=== PATIENT | female | born 1925 | race Caucasian/White ===

== ENCOUNTER 2016-10-03 07:49 | Observation (INO) | payer OTHER ==
[2016-10-03] MEDS ORDERED: NS 1,000 ML IV ONE (07:54)
--- NOTE | 2016-10-03 07:57 | EDPHY ---
H & P Time Seen by Provider: 10/03/16 07:54 HPI/ROS: CHIEF COMPLAINT: Vomiting and diarrhea HISTORY OF PRESENT ILLNESS: Patient is an 89-year-old [facility] with a history of atrial fibrillation and dementia. Staff called EMS because she was vomiting and having diarrhea this morning. She seemed fine yesterday. The patient is unclear as to what her symptoms are. She denies having abdominal pain. No fevers. No recent changes in medications or foods. Vomitus and stool were nonbloody per EMS. REVIEW OF SYSTEMS: Constitutional: denies: chills, fever, recent illness, recent injury EENTM: denies: blurred vision, double vision, nose congestion Respiratory: denies: cough, shortness of breath Cardiac: denies: chest pain, irregular heart rate, lightheadedness, palpitations Gastrointestinal/Abdominal: See HPI Genitourinary: denies: dysuria, frequency, hematuria, pain Musculoskeletal: denies: joint pain, muscle pain Skin: denies: lesions, rash, jaundice, bruising Neurological: denies: headache, numbness, paresthesia, tingling, dizziness, weakness Hematologic/Lymphatic: denies: blood clots, easy bleeding, easy bruising Immunologic/allergic: denies: HIV/AIDS, transplant EXAM: GENERAL: Well-appearing, well-nourished and in no acute distress. HEAD: Atraumatic, normocephalic. EYES: Pupils equal round and reactive to light, extraocular movements intact, sclera anicteric, conjunctiva are normal. ENT: TMs normal, nares patent, oropharynx clear without exudates. Moist mucous membranes. NECK: Normal range of motion, supple without lymphadenopathy or JVD. LUNGS: Breath sounds clear to auscultation bilaterally and equal. No wheezes rales or rhonchi. HEART: Regular rate and rhythm without murmurs, rubs or gallops. ABDOMEN: Soft, nontender, normoactive bowel sounds. No guarding, no rebound. No masses appreciated. BACK: No CVA tenderness, no spinal tenderness, step-offs or deformities EXTREMITIES: Normal range of motion, no pitting or edema. No clubbing or cyanosis. NEUROLOGICAL: Cranial nerves II through XII grossly intact. Normal speech, normal gait. 5/5 strength, normal movement in all extremities, normal sensation PSYCH: Pleasantly demented SKIN: Warm, dry, normal turgor, no visible rashes or lesions. Source: Patient Exam Limitations: No limitations - Medical/Surgical History Hx Asthma: No Hx Chronic Respiratory Disease: No Hx Diabetes: No Hx Cardiac Disease: No Hx Renal Disease: No Hx Cirrhosis: No Hx Alcoholism: No - Family History Significant Family History: No pertinent family hx - Social History Smoking Status: Former smoker Alcohol Use: Sober Drug Use: None Constitutional: Initial Vital Signs Temperature (C) 36.9 C 10/03/16 07:49 Heart Rate 111 H 10/03/16 07:49 Respiratory Rate 16 10/03/16 07:49 Blood Pressure 138/73 H 10/03/16 07:49 O2 Sat (%) 98 10/03/16 07:49 O2 Delivery Mode Room Air Allergies/Adverse Reactions: tramadol Allergy (Verified 10/03/16 08:18) Home Medications: Medication Instructions Recorded Acetaminophen [Tylenol ES 500 mg 500 - 1,000 mg PO Q8HRS PRN 10/03/16 (*)] Alendronate Sodium [Fosamax 70 MG 70 mg PO FR 10/03/16 (*)] Cholecalciferol Vit D3 [Vitamin D3 1,000 units PO DAILY 10/03/16 (*)] Simvastatin [Zocor] 20 mg PO HS 10/03/16 Venlafaxine Xr [Effexor Xr 75MG 150 mg PO HS 10/03/16 (*)] Warfarin Sodium [Coumadin 2.5MG 2.5 mg PO SUTUTHSA@16 10/03/16 (*)] Warfarin Sodium [Coumadin 5MG (*)] 5 mg PO MWF@16 10/03/16 Acetaminophen [Tylenol 325mg (*)] 650 mg PO Q4HRS PRN #0 tab 10/04/16 Metoprolol Tartrate [Lopressor 25 12.5 mg PO BID #0 tab 10/04/16 mg (*)] Medical Decision Making - Diagnostics Imaging: Discussed imaging studies w/ public bath attendant Radiologist ED Course/Re-evaluation: We discussed the patient's lab and CT results. She is feeling well. She has no complaints currently. She denies any cough or shortness of breath type symptoms. She may have an early bronchitis verses small aspiration on CT scan. Will not treat this at this time. I will discharge her with Zofran. She is eager to return home. 12:57 pm The patient's granddaughter arrived to bring her home but she vomited when getting up. She has not received any Zofran in several hours. Will retreat her. Also the [facility] was requesting that we obtain a urine and stool sample. The patient has not had any difficulty with either these symptoms here. She has not had any diarrhea. 2:25 p.m. the patient was able to provide a urine sample but could not ambulate on her own. I discussed the case with Dr. Willis De Leon who will admit to medical service. Differential Diagnosis: Partial list of the Differential diagnosis considered include but were not limited to; gastritis, food poisoning, pneumonia, bronchitis, aspiration and although unlikely based on the history and physical exam, I also considered obstruction, GI bleed, ischemia, volvulus. I discussed these differential diagnoses and the plan with the patient as well as the usual and expected course. The patient understands that the diagnosis is provisional and that in medicine we are not always correct and that further workup is often warranted. Usual and customary warnings were given. All of the patient's questions were answered. The patient was instructed to return to the emergency department should the symptoms at all worsen or return, otherwise to followup with the physician as we discussed. - Data Points Laboratory Results: Laboratory Results 10/03/16 08:25 10/03/16 09:12 Medications Given: Discontinued Medications Sodium Chloride (Ns) 1,000 mls @ 0 mls/hr IV ONCE ONE PRN Reason: Wide Open Stop: 10/03/16 07:55 Last Admin: 10/03/16 08:30 Dose: 1,000 mls Sodium Chloride (Ns) 1,000 mls @ 125 mls/hr IV CONT IZZY Stop: 04/01/17 14:59 Last Admin: 10/03/16 17:20 Dose: 1,000 mls Metoprolol Tartrate (Lopressor) 12.5 mg PO BID IZZY Stop: 04/02/17 10:29 Last Admin: 10/04/16 11:28 Dose: Not Given Ondansetron HCl (Zofran Odt) 4 mg PO EDNOW ONE Stop: 10/03/16 12:56 Last Admin: 10/03/16 13:04 Dose: 4 mg Venlafaxine HCl (Effexor Xr) 150 mg PO HS [facility] Stop: 04/01/17 20:59 Last Admin: 10/03/16 20:19 Dose: 150 mg Warfarin Sodium (Coumadin) 2.5 mg PO SUTUTHSA@16 [facility] Stop: 04/01/17 15:59 Last Admin: 10/03/16 18:34 Dose: 2.5 mg Departure - Departure Disposition: [facility] Acute Clinical Impression: Vomiting and diarrhea, Dehydration Failure to thrive Qualifiers: Failure to thrive age range: in adult Qualified Code(s): R62.7 - Adult failure to thrive Condition: Fair
[2016-10-03 08:36] LABS: % IMMATURE GRANULYOCYTES 0.3 % (0.0-1.1); ABSOLUTE IMMATURE GRANULOCYTES 0.03 10^3/uL (0.00-0.10); ADD DIFF? NO; ADD MORPH? NO; ADD SCAN? NO; ATYPICAL LYMPHOCYTE FLAG 0 (0-99); FRAGMENT RBC FLAG 0 (0-99); HEMATOCRIT 44.2 % (38.0-47.0); HEMOGLOBIN 14.1 g/dL (12.6-16.3); LEFT SHIFT FLG 0 (0-99); LIPEMIA HEMOLYSIS FLAG 80 (0-99); MEAN CELL HEMOGLOBIN 29.1 pg (27.9-34.1); MEAN CELL HEMOGLOBIN CONCENTR. 31.9 g/dL (32.4-36.7); MEAN CELL VOLUME 91.3 fL (81.5-99.8); MEAN PLATELET VOLUME 9.1 fL (8.7-11.7); PLATELET CLUMPS FLAG 0 (0-99); PLATELET COUNT 257 10^3/uL (150-400); RED BLOOD CELL COUNT 4.84 10^6/uL (4.18-5.33); RED CELL DISTRIBUTION WIDTH 15.7 % (11.5-15.2)
[2016-10-03 08:56] LABS: INR 2.13 (0.83-1.16)
[2016-10-03 08:57] LABS: APTT 30.6 SEC (23.0-38.0)
[2016-10-03 09:43] LABS: ALANINE AMINOTRANSFERASE 29 IU/L (9-52); ALBUMIN 2.8 g/dL (3.5-5.0); ALKALINE PHOSPHATASE 73 IU/L (38-126); ANION GAP 8 mEq/L (8-16); ASPARTATE AMINOTRANSFERASE 22 IU/L (14-46); BILIRUBIN,TOTAL 0.7 mg/dL (0.1-1.4); BILIRUBIN-CONJUGATED 0.3 mg/dL (0.0-0.5); BILIRUBIN-UNCONJUGATED 0.4 mg/dL (0.0-1.1); CALCIUM 7.8 mg/dL (8.5-10.4); CARBON DIOXIDE 24 mEq/l (22-31); CHLORIDE 113 mEq/L (97-110); CREATININE 0.6 mg/dL (0.6-1.0); GLOMERULAR FILTRATION RATE > 60; GLUCOSE 89 mg/dL (70-100); POTASSIUM 3.9 mEq/L (3.5-5.2); SODIUM 145 mEq/L (134-144); TOTAL PROTEIN 6.3 g/dL (6.3-8.2)
[2016-10-03] MEDS ORDERED: IOPAMIDOL (ISOVUE-300) 100 ML BTL IV ONE (10:10)
[2016-10-03] MEDS ORDERED: ONDANSETRON DISINTEGRATING 4 MG TAB PO ONE (12:55)
[2016-10-03 14:33] LABS: COLOR YELLOW; LEUKOCYTE ESTERASE,URINE NEGATIVE (NEGATIVE); NITRITE,URINE NEGATIVE (NEGATIVE)
[2016-10-03 14:49] LABS: BACTERIA 3+ /hpf (NONE SEEN); MUCUS NONE SEEN /lpf (NONE-1+)
[2016-10-03] MEDS ORDERED: ONDANSETRON 4 MG/2 ML VIAL IVP PRN (14:53)
[2016-10-03] MEDS ORDERED: ONDANSETRON DISINTEGRATING 4 MG TAB PO PRN (14:53)
[2016-10-03] MEDS ORDERED: ACETAMINOPHEN 325 MG TAB PO PRN (14:53)
[2016-10-03] MEDS ORDERED: NS 1,000 ML IV SCH (15:00)
--- NOTE | 2016-10-03 15:35 | GHP ---
[f rep st] HISTORY AND PHYSICAL DATE OF ADMISSION: 10/03/2016 HISTORY OF PRESENT ILLNESS: The patient is a pleasant 89-year-old female with a history of dementia and atrial fibrillation, as well as a hip fracture about a year ago, who presents to [facility] with diarrhea and weakness. It sounds like she endorses diarrhea this morning; althoug h, she has a poor memory and is not entirely certain why she is here. Also, in the emergency depart ment, she received some Zofran and felt better, but then threw up again when they were thinking abou t discharging her. She was admitted to [facility] about a month ago with weakness and diarrhea and found to have influenza. It is not clear if she has had recent antibiotics. She does take warfarin. She is complaining of a dry mouth as really her only complaint. I did have the opportunity to speak with her son who provided additional history. It sounds like vero wong has a history of interstitial lung disease and atrial fibrillation. He did confirm a no-code stat us for her. They got her up to take her home, and she was unable to walk. It sounds like she lives in assisted living after having been at independent living until 1 year ago when she broke her hip. Since then, there have been some issues with progressive weakness and memory loss. REVIEW OF SYSTEMS: Complete 10-point review of systems conducted and negative except as noted in HP I. PAST MEDICAL HISTORY: 1. Atrial fibrillation on warfarin. 2. Dementia. 3. Possible interstitial lung disease. 4. Recent influenza. 5. Osteoporosis. 6. Hip fracture. ALLERGIES: Tramadol. HOME MEDICATIONS: Warfarin, simvastatin, metoprolol, alendronate, vitamin D3, venlafaxine. SOCIAL HISTORY: She is originally from [place], [place]. Minimal smoker. No alcohol. FAMILY HISTORY: Son is alive and healthy. PHYSICAL EXAMINATION: VITAL SIGNS: Temp 37, blood pressure 134/61, pulse 111 on presentation, now 91, breathing 20 times a minute, 97% on room air. GENERAL: No acute distress. HEENT: Sclerae ani cteric. Oropharynx clear. Mucous membranes are very dry. NECK: Supple without lymphadenopathy. No JVD. LUNGS: Crackles throughout. HEART: S1, S2. Irregularly irregular without significant mu rmurs. ABDOMEN: Soft, nontender, nondistended. LOWER EXTREMITIES: Without edema. Calves nontend er. SKIN: Without rash. NEUROLOGIC: Nonfocal. LABORATORY DATA: White count 10.6, hematocrit 44, platelets are 257,000. INR is 2.1. Sodium is 14 5 potassium 3.9, chloride 113, bicarb 24, BUN 17, creatinine 0.6, glucose 89. LFTs normal. Albumin is 2.8. Lipase normal. UA is pending. Abdominal CT, interpreted by me, shows reticulonodular pattern at the base as well as bronchitis, di verticulosis without evidence of diverticulitis, old compression fractures. I discussed the case Dr. Jarad Cortes. ASSESSMENT/PLAN: This is an 89-year-old female with dementia, who presents with dehydration from na usea and vomiting. 1. Nausea/vomiting. I suspect this is just a routine viral illness, GI. Stool samples have been s ent. I have also sent C difficile, and given her recent hospitalization, I will send influenza for completeness' sake. She does not have peritoneal signs on exam and she has a benign contrast CT. 2. Interstitial lung disease. Per son, she may have some interstitial lung disease. The CAT scan only showed the bases of her lungs. I will have speech therapy see here to rule out chronic aspirat ion. Her son did not think this sounded like a familiar problem for her. 3. Atrial fibrillation, rate controlled. She is on warfarin. I do wonder about the safety of pham mayen in a lady with dementia who is unsteady on her feet. Will not address that issue today. 4. Code status: Do not resuscitate. I spoke about this at length with the son, and it sounded lik e he had a little bit of trouble understanding what the terms actually meant, but ultimately decided she would not want resuscitation, and that is when we decided she would be DNR. 5. Prophylaxis therapy: She is anticoagulated. 6. Disposition: Inpatient status. /[id number]/MODL
[2016-10-03] MEDS ORDERED: WARFARIN SODIUM 2.5 MG TAB PO SCH (16:00)
[2016-10-03] MEDS ORDERED: VENLAFAXINE XR 75 MG CAP PO SCH (21:00)
[2016-10-04 04:47] VITALS: PULSE 97
[2016-10-04 05:29] LABS: % IMMATURE GRANULYOCYTES 0.2 % (0.0-1.1); ABSOLUTE IMMATURE GRANULOCYTES 0.01 10^3/uL (0.00-0.10); ADD DIFF? NO; ADD MORPH? NO; ADD SCAN? NO; ATYPICAL LYMPHOCYTE FLAG 0 (0-99); FRAGMENT RBC FLAG 0 (0-99); HEMATOCRIT 34.9 % (38.0-47.0); HEMOGLOBIN 11.2 g/dL (12.6-16.3); LEFT SHIFT FLG 0 (0-99); LIPEMIA HEMOLYSIS FLAG 80 (0-99); MEAN CELL HEMOGLOBIN 29.1 pg (27.9-34.1); MEAN CELL HEMOGLOBIN CONCENTR. 32.1 g/dL (32.4-36.7); MEAN CELL VOLUME 90.6 fL (81.5-99.8); MEAN PLATELET VOLUME 9.4 fL (8.7-11.7); PLATELET CLUMPS FLAG 10 (0-99); PLATELET COUNT 201 10^3/uL (150-400); RED BLOOD CELL COUNT 3.85 10^6/uL (4.18-5.33); RED CELL DISTRIBUTION WIDTH 15.8 % (11.5-15.2)
[2016-10-04 05:31] LABS: ANION GAP 8 mEq/L (8-16); CALCIUM 7.7 mg/dL (8.5-10.4); CARBON DIOXIDE 22 mEq/l (22-31); CHLORIDE 108 mEq/L (97-110); CREATININE 0.5 mg/dL (0.6-1.0); GLOMERULAR FILTRATION RATE > 60; GLUCOSE 81 mg/dL (70-100); POTASSIUM 3.6 mEq/L (3.5-5.2); SODIUM 138 mEq/L (134-144)
[2016-10-04 05:47] LABS: INR 2.96 (0.83-1.16); PROTIME(PATIENT) 31.2 SEC (12.0-15.0)
[2016-10-04 08:04] VITALS: RESP 14; TEMP 98.4; O2SAT 95
--- NOTE | 2016-10-04 09:48 | HOSPPROG ---
Hospitalist Progress Note Assessment/Plan: Patient is an 89-year-old female who presented to [facility] with diarrhea and weakness. She was admitted for further care. Today is my 1st encounter with the patient. * Nausea vomiting with associated diarrhea likely a viral gastroenteritis CT scan of the abdomen does not show anything acute in the abdomen negative for the influenza * interstitial lung disease the CT scan noted bronchitis but only evaluated the bases of the lungs on room air * atrial fibrillation rate controlled and on oral anticoagulation INR is 2.96 * dementia/progressing spoke w patient's son/ he is having her f/u with her PCP at [place] * Pyuria urine cx pending no s/sx *weakness: PT recommending homecare *Plan: dc back to her own home environment/ spoke with her son, Tomás, about plan of care. CM to help arrange with Tomás and [facility] to get her back there. Subjective: Shey says she is feeling fine, eating well, no diarrhea/ shares w me she has some memory loss. Objective: Vital Signs Temp Pulse Resp BP Pulse Ox 36.9 C 97 14 103/61 95 10/04/16 08:00 10/04/16 08:00 10/04/16 08:00 10/04/16 08:00 10/04/16 08:00 Laboratory Results 10/04/16 04:26 10/04/16 04:26 10/03/16 10/04/16 10/05/16 05:59 05:59 05:59 Intake Total 250 Balance 250 PT 31.2 SEC (12.0-15.0) H 10/04/16 04:26 INR 2.96 (0.83-1.16) H 10/04/16 04:26 - Physical Exam Constitutional: no apparent distress, appears nourished Eyes: PERRL Ears, Nose, Mouth, Throat: moist mucous membranes Cardiovascular: irregularly irregular Respiratory: no respiratory distress Gastrointestinal: normoactive bowel sounds Skin: warm, normal color Neurologic: other (alert and oriented to herself,and where she is, can't remember name of place where she lives) Psychiatric: interacting appropriately ICD10 Worksheet Patient Problems: Problems Problem Status Onset Vomiting and diarrhea Acute Dehydration Acute Failure to thrive Acute
--- NOTE | 2016-10-04 10:19 | PDIAF ---
- Diagnosis Diagnosis: Nausea, vomiting, diarrhea. Dementia Code Status: Do Not Resuscitate - Medication Management Discharge Medications: Medications to Continue on Transfer Acetaminophen [Tylenol ES 500 mg (*)] 500 - 1,000 mg PO Q8HRS PRN 10/03/16 [ Last Taken 10/02/16 1000mg] Alendronate Sodium [Fosamax 70 MG (*)] 70 mg PO FR 10/03/16 [Last Taken 09/29/16 ] Cholecalciferol Vit D3 [Vitamin D3 (*)] 1,000 units PO DAILY 10/03/16 [Last Taken 10/02/16] Simvastatin [Zocor] 20 mg PO HS 10/03/16 [Last Taken 10/02/16] Venlafaxine Xr [Effexor Xr 75MG (*)] 150 mg PO HS 10/03/16 [Last Taken 10/02/16] Warfarin Sodium [Coumadin 2.5MG (*)] 2.5 mg PO SUTUTHSA@16 10/03/16 [Last Taken 10/01/16] Warfarin Sodium [Coumadin 5MG (*)] 5 mg PO MWF@16 10/03/16 [Last Taken 10/02/16] Acetaminophen [Tylenol 325mg (*)] 650 mg PO Q4HRS PRN #0 tab 10/04/16 [Last Taken Unknown] Metoprolol Tartrate [Lopressor 25 mg (*)] 12.5 mg PO BID #0 tab 10/04/16 [Last Taken Unknown] Discharge Medications: Refer to the Discharge Home Medication list for PRN reason. - Orders Services needed: Home Care, Registered Nurse, Certified Used Car Lot Attendant, Physical Therapy, Occupational Therapy Home Care Face to Face: I certify that this patient was under my care and that I had the required [id number] encounter meeting the encounter requirements on the discharge day. My findings support the fact that the patient is homebound as defined in CMS Chapter 7 Medicare Benefits Manual 30.1.1, The condition of the patient is such that there exists a normal inability to leave home and consequently, leaving home would require a considerable and taxing effort. Diet Recommendation: no restrictions on diet Diet Texture: Regular Texture Diet Additional: hold coumadin today/ check INR in a.m. Lopressor dose has been cut in 12 due to low blood pressure and weakness. follow up with PCP next week to discuss. - Labs/Radiology PT/INR Date: 10/05/16 (every 3 days till stable) - Follow Up Care Current Providers and Referrals: Yamilet Richardson MD [place] [place] - As per Instructions
[2016-10-04] MEDS ORDERED: METOPROLOL TARTRATE 25 MG TAB PO SCH (10:30)
--- NOTE | 2016-10-04 10:42 | GDS ---
[f rep st] DISCHARGE SUMMARY DISCHARGE DIAGNOSES: 1. Nausea, vomiting and diarrhea. 2. Interstitial lung disease. 3. Atrial fibrillation. 4. Progressing dementia. 5. Pyuria. 6. Weakness. 7. Medial left buttock blister. Present on admission. BRIEF HISTORY: The patient is a pleasant 89-year-old female with a history of dementia and atrial fibrillation as well as a hip fracture approximately a year ago. She presented to [facility] with diarrhea and weakness. In the emergency, she received Zofran and felt better and then had a bout of emesis. She was admitted to [facility] about a month ago with weakness and diarrhea and found to have influenza. I spoke with her son. He lives up in the [facility]. Her symptoms have completely resolved. The plan is for her to return to [facility] because of her dementia she does best there. Will get home care arranged for her for further followup care. HOSPITAL COURSE: 1. Nausea, vomiting with associated diarrhea. CT scan showed nothing acute. She was checked for the flu. This was negative. It was likely a viral gastroenteritis. She was eating and drinking when I evaluated her this morning. 2. Interstitial lung disease. She is stable on room air. 3. Atrial fibrillation. She is rate controlled and on oral anticoagulation. INR went up to 2.96. Will hold today's dose and get it checked tomorrow. In addition, I have reduced her Lopressor dose. She has been slightly hypotensive. Concerned that this may be attributing to her weakness at home. 4. Progressing dementia. I spoke with her son. He is going to follow up with her doctor at [place]. 5. Pyuria. A urine culture is pending. She has no signs or symptoms. 6. Weakness. Will range for PT and OT to see her in her home environment. 7. Left buttock blister. POA. Seen and evaluated by wound care. PENDING LABS: Urine culture is pending. CONDITION AT DISCHARGE: Stable. Blood pressure is 103/61, heart rate is 97, respiratory rate is 14, O2 sats on room air 95%, temperature is 36.9 Celsius. MEDICATIONS AT DISCHARGE: Please see the EMR. DISCHARGE INSTRUCTIONS: 1. To follow up with her primary care provider. I am recommending that she take half her dose of her Lopressor. 2. To hold her Coumadin today. 3. To follow up with the [place] doctor to try to treat her dementia progressively. Greater than 30 minutes discharging and coordinating care. /[id number]/MODL MTDD
--- NOTE | 2016-10-04 11:32 | WOCRNPDOC ---
WOCRN Advanced Assessment Note - Skin Integrity Problem, Advanced Assess Left Medial Buttock Pressure Injury Dressing Type: Open to Air Exudate Amount: None Exudate Characteristic(s): None Integumentary Issue Intervention: Barrier Cream Applied (Dimethicone) Jaun Wound Tissue: Blanching, Erythema Jaun Wound Swelling: None Wound Bed Constitution: Intact Serous Filled Blister Site Odor: None Site Measurement - Head-to-Toe Length X Width X Depth (cm): 1.5 cm pedro x 0 Pressure Injury Stage: Stage 2 Pressure Injury Present on Admit: Yes (noted on nursing admission) Skin Integrity Problem Comment: A flattening, flaccid blister with intact roof, with the appearance of resorbing fluid is located proximal to the perineal/ perianal region of the left buttock, subject to frequent moisture. Since patient was evaluated while standing with assistance and walker in front of chair, with c/o fatigue, a covered waffle air cushion was quickly placed on the seat and moisture barrier cream was applied to the site and the jaun areas before assisting patient back to sitting. An order will be written to provide for dressing changes and routine q2 hour turns when in bed. Discussed care and plan with patient, who expresses that she is pleased.
[2016-10-04 12:20] VITALS: BP 93/57
[2016-10-04] MEDS ORDERED: ATORVASTATIN CALCIUM 10 MG TAB PO SCH (21:00)
[2016-10-04] MEDS ORDERED: NON-FORMULARY NEW DRUG (Simvastatin [Zocor] 20 MG) PO SCH (21:00)
== END 2016-10-04 12:00 | disposition home health service (06) ==
LOC: OBSVTOIN 14:29 → INTOOBSV 14:29 → F3E 17:03
PROVIDERS: ADMIT Internal Medicine; ATTEND Family Medicine
DX: R11.2 Nausea with vomiting, unspecified (principal); R19.7 Diarrhea, unspecified; R62.7 Adult failure to thrive; E86.0 Dehydration; I48.91 Unspecified atrial fibrillation; F03.90 Unspecified dementia, unspecified severity, without behavioral disturbance, psychotic disturbance, mood disturbance, and anxiety; J84.9 Interstitial pulmonary disease, unspecified; N39.0 Urinary tract infection, site not specified; L89.322 Pressure ulcer of left buttock, stage 2; Z66 Do not resuscitate
CPT/HCPCS: 74177; 92610; 96360; 97161; 97166; 99285; G0378; G8987; G8988; G8989; Q9967